=== PATIENT | male | born 1995 | race African-American/Black ===

== ENCOUNTER 2023-04-10 07:00 | Outpatient (CLI) | payer MEDICAID, SELFPAY ==
--- NOTE | ~2023-04-10 | MR_ITS ---
MRI of the brain knee Clinical history: Lateral collateral ligament injury Technique: Coronal proton density and proton density-weighted images, sagittal proton-density and T2 fat-sat images, and axial proton-density fat-saturated images were acquired. Findings: ACL is markedly hyperintense, though with probable preservation of fibers, compatible with mucoid degenerative change. PCL is intact. Medial collateral ligament is intact. Lateral collateral l igament complex is intact. Popliteal fibular ligament is intact. Medial and lateral menisci are intact, without evidence of tear. There are amorphous bone contusions along the posterior medial and posterolateral tibial plateau subhash ons. Articular cartilage is well preserved throughout the knee. Extensor mechanism is intact. Small joint effusion present. No Lopez's cyst. Impression: Amorphous mild bone contusions at the posterior medial and posterolateral tibial plateau regions. Mild nonspecific soft tissue edema at the lateral collateral ligament complex, no ligamentous tear ev ident. Mucoid degenerative change of the ACL versus severe ACL sprain. Complete tear felt to be less likely, though not completely excluded. Correlate clinically for ACL laxity. Reviewed, dictated and finalized at location . [employer] Impression: Amorphous mild bone contusions at the posterior medial and posterolateral tibia l plateau regions. Mild nonspecific soft tissue edema at the lateral collateral ligament complex, no ligamentous tear evident. Mucoid degenerative change of the ACL versus severe ACL sprain. Complete tear f elt to be less likely, though not completely excluded. Correlate clinically for ACL laxity.
== END 2023-04-10 07:01 | disposition home or self-care (01) ==
LOC: ANHIMG 07:07
PROVIDERS: Visit Provider Physician Assistant
DX: S89.90XA Unspecified injury of unspecified lower leg, initial encounter (principal); X58.XXXA Exposure to other specified factors, initial encounter; M25.561 Pain in right knee
CPT/HCPCS: 73721